=== PATIENT | female | born 1980 | race Caucasian/White ===

== ENCOUNTER 2023-08-09 01:42 | Emergency (ER) | payer SELFPAY ==
[~2023-08-09] VITALS: Ht 165.1 cm; Wt 88.0 kg
[2023-08-09 01:48] VITALS: O2SAT 100
[2023-08-09 02:16] VITALS: TEMP 98.4
[2023-08-09] MEDS: HYDROCODONE/ACETAMINOPHEN 5/325MG TABLET PO STA (02:53)
[2023-08-09 05:44] VITALS: BP 128/76; PULSE 80; RESP 18
== END 2023-08-09 06:00 | disposition home or self-care (01) ==
LOC: ER 01:42
DX: S01.01XA Laceration without foreign body of scalp, initial encounter (principal); I10 Essential (primary) hypertension; W01.0XXA Fall on same level from slipping, tripping and stumbling without subsequent striking against object, initial encounter; Y93.89 Activity, other specified; Y92.89 Other specified places as the place of occurrence of the external cause; Y99.8 Other external cause status
CPT/HCPCS: 70450; 99284; Z7610